=== PATIENT | male | born 1980 ===

== ENCOUNTER 2017-01-28 20:59 | Emergency (ER) | payer OTHER ==
[2017-01-28 21:51] VITALS: RESP 18
[2017-01-28] MEDS ORDERED: Tetracaine 0.5% Ophth (OR ONLY) OU STA (22:04)
[2017-01-28] MEDS ORDERED: Fluorescein 1 mg Ophthalmic Strip OU STA (22:04)
[2017-01-28] MEDS ORDERED: Lidocaine 1% Inj (20ml) INFIL STA (22:04)
[2017-01-28] MEDS ORDERED: Lidocaine 1% Inj (20ml) ONE (22:13)
[2017-01-28] MEDS ORDERED: Tetracaine 0.5% Ophth (OR ONLY) ONE (22:14)
[2017-01-28] MEDS ORDERED: Tetanus/Diphtheria Toxoids 0.5 ml Syringe IM ONE ×2 (22:36→22:44)
[2017-01-28] MEDS ORDERED: Bacitracin 500 Units/gm Oint Foilpak UD TOP STA (22:36)
[2017-01-28] MEDS ORDERED: Ciprofloxacin 0.3% OPTH SOLN OD STA (22:36)
[2017-01-28] MEDS ORDERED: Ciprofloxacin 0.3% OPTH SOLN ONE (22:43)
[2017-01-28] MEDS ORDERED: Bacitracin 500 Units/gm Oint Foilpak UD ONE (22:43)
--- NOTE | 2017-01-28 22:48 | C.PDOC ---
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 Denies weakness, numbness, or change in vision. Time Seen by Provider: 01/28/17 21:58 Chief Complaint (Nursing): Abnormal Skin Integrity History Per: Patient History/Exam Limitations: no limitations Onset/Duration Of Symptoms: Hrs Current Symptoms Are (Timing): Still Present Location Of Injury: Right: Face (eyes), Hand, Left: Face Quality Of Symptoms: Painful Recent travel outside of the [place]: No Past Medical History Reviewed: Historical Data, Nursing Documentation, Vital Signs Vital Signs: Last Vital Signs Temp 97.9 F 01/28/17 23:14 Pulse 84 01/28/17 23:14 Resp 18 01/28/17 23:14 BP 140/76 01/28/17 23:14 Pulse Ox 99 01/28/17 23:14 - Medical History PMH: No Chronic Diseases Surgical History: No Surg Hx Family History: States: Unknown Family Hx - Social History Hx Alcohol Use: No Hx Substance Use: No - Immunization History Hx Tetanus Toxoid Vaccination: No Hx Influenza Vaccination: No Hx Pneumococcal Vaccination: No Review Of Systems ENT: Positive for: Ear Pain. Negative for: Ear Discharge Musculoskeletal: Positive for: Hand Pain Skin: Positive for: Other (Laceration) Neurological: Negative for: Weakness, Numbness Physical Exam - Physical Exam Appears: Non-toxic Skin: Normal Color, Warm, Dry Head: Atraumatic, Normacephalic Eye(s): bilateral: Other (Erythema and tearing) Oral Mucosa: Moist Extremity: Other (2 1/2cm L shaped laceration to medial aspect of right hand) Pulses: Left Radial: Normal, Right Radial: Normal Neurological/Psych: Oriented x3, Normal Speech, Normal Cognition ED Course And Treatment O2 Sat by Pulse Oximetry: 97 (Room air) Pulse Ox Interpretation: Normal Progress Note: Bacitracin, Ciprofloxcin eye drops, Keflex po and Tetanus vaccination administered. Laceration repair performed; patient will be discharged home with Rx and instructed to follow up with netbackup administrator. Eye Treatment - Treatment Performed Eye Treatment: Other: (Fluorescein and tetracaine applied to bilateral eye with pointed uptake at 3 o'clock area to left eye) Foreign Body Removal With: Cotton Tip Swab (Attempted with no success) Laceration - Laceration Repair Right Hand Wound Length (In cm): 2cm Description Of Wound: Irregular (L shaped), Contused Tissue Wound Cleansed With: Betadine, Sterile Saline Anesthesia: Lidocaine 1% Wound Examination: Irrigated With Saline, No FB With Wound Exploration, No Tendon Injury With Wound Exploration Wound Closure: Suture Suture Technique And Material Used: Interrupted (4), Nylon (4-0) Wound Complexity: Simple Disposition - Disposition Referrals: Tang Reyes MD [Staff Provider] - Disposition: HOME/ ROUTINE Disposition Time: 23:05 Condition: STABLE Additional Instructions: Follow up with PMD/Clinic and Cash Register Repairer within 1-2 days. Return to ED immediately if feels worse. Suture removal in 10 days. Prescriptions: Bacitracin OINT 1 applic TP TID #45 g Cephalexin [cephalexin] 500 mg PO Q6 #28 cap Instructions: Care For Your Stitches (ED), Laceration (ED), Eye Foreign Body ( ED) Forms: Fixed - [employer] (Belarusian) - Clinical Impression Clinical Impression: Corneal foreign body, Hand laceration - Scribe Statement The provider has reviewed the documentation as recorded by the Scribe Germán Leahy All medical record entries made by the Scribe were at my direction and personally dictated by me. I have reviewed the chart and agree that the record accurately reflects my personal performance of the history, physical exam, medical decision making, and the department course for this patient. I have also personally directed, reviewed, and agree with the discharge instructions and disposition.
[2017-01-28 23:15] VITALS: BP 140/76; PULSE 84; TEMP 97.9
[2017-01-28 23:24] VITALS: O2SAT 97
== END 2017-01-28 23:14 | disposition home or self-care (01) ==
LOC: C.ER 20:59
DX: S61.411A Laceration without foreign body of right hand, initial encounter (principal); T15.02XA Foreign body in cornea, left eye, initial encounter; W45.8XXA Other foreign body or object entering through skin, initial encounter; Y93.89 Activity, other specified; Y92.89 Other specified places as the place of occurrence of the external cause

== ENCOUNTER 2017-02-07 20:52 | Emergency (ER) | payer OTHER ==
[2017-02-07 20:57] VITALS: BP 116/77; PULSE 66; RESP 16; TEMP 98.1; O2SAT 99
--- NOTE | 2017-02-07 21:33 | C.PDOC ---
History Of Present Illness 36 y/o male presents to ED for left hand stitches removal. Patient was seen at ED on 01/28/17 for evaluation on laceration to left hand sustained with an unknown metal under car. Pt notes that two stitches popped he removed one and noted some skin seperation. Notes the uses his hand a lot at work. Denies any redness, discharge, active bleeding, numbness, weakness or any other complaints at this time. Time Seen by Provider: 02/07/17 21:03 Chief Complaint (Nursing): Suture/Staple Removal History Per: Patient History/Exam Limitations: no limitations Onset/Duration Of Symptoms: Days Ago Current Symptoms Are (Timing): Still Present Location Of Injury: Left: Hand Past Medical History Reviewed: Historical Data, Nursing Documentation, Vital Signs Vital Signs: Last Vital Signs Temp 98.1 F 02/07/17 20:55 Pulse 66 02/07/17 20:55 Resp 16 02/07/17 20:55 BP 116/77 02/07/17 20:55 Pulse Ox 99 02/07/17 21:40 Family History: States: No Known Family Hx - Social History Hx Alcohol Use: No Hx Substance Use: No - Immunization History Hx Tetanus Toxoid Vaccination: No Hx Influenza Vaccination: No Hx Pneumococcal Vaccination: No Review Of Systems Except As Marked, All Systems Reviewed And Found Negative. Constitutional: Negative for: Fever, Chills Genitourinary: Negative for: Dysuria, Frequency Musculoskeletal: Negative for: Shoulder Pain, Hand Pain Skin: Negative for: Rash Physical Exam - Physical Exam Appears: Non-toxic, No Acute Distress Skin: Warm, Dry, No Rash, Other (2cm healing laceration to left hand, no erythema, no discharge) Head: Atraumatic, Normacephalic Eye(s): bilateral: Normal Inspection, EOMI Nose: Normal Oral Mucosa: Moist Chest: Symmetrical Respiratory: No Accessory Muscle Use Extremity: Normal ROM, No Tenderness, Capillary Refill (<2 seconds), No Swelling Pulses: Left Radial: Normal, Right Radial: Normal Neurological/Psych: Oriented x3, Normal Speech, Normal Cognition, Normal Motor, Normal Sensation ED Course And Treatment O2 Sat by Pulse Oximetry: 99 (RA) Pulse Ox Interpretation: Normal Progress Note: Two suture intact. One open. Open one removed. One suture removed. Some skin seperation noted with dried blood in between. Steristip applied and one suture left. Instructed to return in 3 days for suture removal. Reevaluation Time: 21:25 Reassessment Condition: Improved Disposition - Disposition Disposition: HOME/ ROUTINE Disposition Time: 21:34 Condition: STABLE Additional Instructions: KEep area clean and dry. Return in 3 - 4 days for suture removal. Instructions: Stitches Removal (ED) Forms: [employer] (Occitan) - Clinical Impression Clinical Impression: Removal of suture - PA / AGENCY SALES DEVELOPMENT ASSOCIATE / Resident Statement MD/DO has reviewed & agrees with the documentation as recorded. - Scribe Statement The provider has reviewed the documentation as recorded by the Scribmoose Vega All medical record entries made by the Jamar were at my direction and personally dictated by me. I have reviewed the chart and agree that the record accurately reflects my personal performance of the history, physical exam, medical decision making, and the department course for this patient. I have also personally directed, reviewed, and agree with the discharge instructions and disposition.
== END 2017-02-07 21:45 | disposition home or self-care (01) ==
LOC: C.ER 20:52
DX: Z48.02 Encounter for removal of sutures (principal)

== ENCOUNTER 2017-03-15 18:59 | Emergency (ER) | payer OTHER ==
[2017-03-15 19:19] VITALS: BMI 26.6
[2017-03-15 19:23] VITALS: BP 124/72; PULSE 79; TEMP 98.2; O2SAT 98
--- NOTE | 2017-03-15 21:00 | C.PDOC ---
History Of Present Illness 36 year old male presents to the ED with complaints of blisters to upper and lower lips for three days. Patient denies throat pain, rash, or urinary symptoms. Time Seen by Provider: 03/15/17 19:25 Chief Complaint (Nursing): Dental Pain History Per: Patient History/Exam Limitations: no limitations Onset/Duration Of Symptoms: Days (3 days ) Current Symptoms Are (Timing): Still Present Recent travel outside of the [place]: No Past Medical History Reviewed: Historical Data, Nursing Documentation, Vital Signs Vital Signs: Last Vital Signs Temp 98.2 F 03/15/17 19:20 Pulse 79 03/15/17 19:20 Resp 20 03/15/17 21:02 BP 124/72 03/15/17 19:20 Pulse Ox 98 03/15/17 21:00 Family History: States: Unknown Family Hx - Social History Hx Alcohol Use: No Hx Substance Use: No - Immunization History Hx Tetanus Toxoid Vaccination: No Hx Influenza Vaccination: No Hx Pneumococcal Vaccination: No Review Of Systems Constitutional: Negative for: Fever, Chills ENT: Positive for: Other (blisters to lips ). Negative for: Throat Swelling Physical Exam - Physical Exam Appears: Non-toxic, No Acute Distress Skin: Warm, Dry Head: Atraumatic, Normacephalic Eye(s): bilateral: Normal Inspection, PERRL, EOMI Ear(s): Bilateral: Normal Nose: Normal, No Discharge Oral Mucosa: Moist Tongue: Normal Appearing, No Swelling Lips: Other (vesicle clusters present to lower and upper lips ) Throat: Normal, No Erythema, No Exudate Neck: Supple Neurological/Psych: Oriented x3 ED Course And Treatment O2 Sat by Pulse Oximetry: 98 (RA) Progress Note: Patient was given Zovirax. Disposition - Disposition Referrals: Clinic,Med Surg [Primary Care Provider] - Disposition: HOME/ ROUTINE Disposition Time: 20:56 Condition: STABLE Additional Instructions: Follow up with your PMD/clinic within 1-2 days. Return to Ed if feel worse. Prescriptions: Acyclovir 400 mg PO 5XD #50 tablet Acyclovir 5% [Zovirax] 1 appl TP 5XD #1 tube Instructions: Oral Herpes Simplex Virus Infections (ED) Forms: [employer] (Serbian) - Clinical Impression Clinical Impression: Herpes labialis - PA / COLOR MAKER / Resident Statement MD/DO has reviewed & agrees with the documentation as recorded. - Scribe Statement The provider has reviewed the documentation as recorded by the Scribe Patrica Moser All medical record entries made by the Morenaibmoose were at my direction and personally dictated by me. I have reviewed the chart and agree that the record accurately reflects my personal performance of the history, physical exam, medical decision making, and the department course for this patient. I have also personally directed, reviewed, and agree with the discharge instructions and disposition.
[2017-03-15 21:03] VITALS: RESP 20
== END 2017-03-15 21:02 | disposition home or self-care (01) ==
LOC: SUPCPDRO 18:59 → C.ER 18:59
DX: B00.1 Herpesviral vesicular dermatitis (principal)

== ENCOUNTER 2017-05-01 10:26 | Emergency (ER) | payer OTHER ==
[2017-05-01 10:27] VITALS: BMI 26.6
[2017-05-01 10:32] VITALS: BP 120/82; PULSE 102; RESP 18; TEMP 98.1; O2SAT 99
[2017-05-01] MEDS ORDERED: Lidocaine 2% Inj (20ml) ONE (10:48)
--- NOTE | 2017-05-01 11:12 | C.PDOC ---
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 TRIP AND FALL CO CHIN LAC. DENIES OTHER ASSOC SX EXAM NAD HEENT NO INTRAORAL TRAUMA; AROM MANIBLE WO DIFF SKIN +L-SHAPED CHIN LAC W MIN ACTIVE BLEED, NO FB NEURO INTACT Time Seen by Provider: 05/01/17 11:09 Chief Complaint (Nursing): Abnormal Skin Integrity History Per: Patient History/Exam Limitations: no limitations Current Symptoms Are (Timing): Still Present Past Medical History Reviewed: Historical Data, Nursing Documentation, Vital Signs Vital Signs: Last Vital Signs Temp 98.1 F 05/01/17 10:32 Pulse 102 H 05/01/17 10:32 Resp 18 05/01/17 10:32 BP 120/82 05/01/17 10:32 Pulse Ox 99 05/01/17 18:00 Family History: States: Unknown Family Hx - Social History Hx Alcohol Use: No Hx Substance Use: No - Immunization History Hx Tetanus Toxoid Vaccination: Yes Hx Influenza Vaccination: No Hx Pneumococcal Vaccination: No Review Of Systems Constitutional: Negative for: Weakness Cardiovascular: Negative for: Chest Pain Respiratory: Negative for: Shortness of Breath Gastrointestinal: Negative for: Nausea, Vomiting Musculoskeletal: Positive for: Other (CHIN INJURY). Negative for: Neck Pain Neurological: Negative for: Weakness, Numbness Physical Exam - Physical Exam Appears: Non-toxic, No Acute Distress Skin: Warm, Dry, Other ( +L-SHAPED CHIN LAC W MIN ACTIVE BLEED, NO FB) Head: Other (NO INTRA ORAL TRAUMA; AROM MANDIBLE WO DIFF) Nose: Normal Oral Mucosa: Moist Lips: Normal Appearing Neck: Normal ROM Cardiovascular: Rhythm Regular, No Murmur Respiratory: Normal Breath Sounds, No Accessory Muscle Use Extremity: Normal ROM Neurological/Psych: Oriented x3, Normal Speech (NO FOCAL DEFICIT) ED Course And Treatment O2 Sat by Pulse Oximetry: 99 Laceration - Laceration Repair 1 Wound Length (In cm): 2 Description Of Wound: Clean, Irregular Wound Cleansed With: Betadine Anesthesia: Lidocaine 2% Wound Examination: Irrigated With Saline, No FB With Wound Exploration Wound Closure: Suture Suture Technique And Material Used: Prolene (3.0) Wound Complexity: Simple Disposition Counseled Patient/Family Regarding: Diagnosis, Need For Followup - Disposition Referrals: Clinic,Med Surg [Primary Care Provider] - Disposition: HOME/ ROUTINE Disposition Time: 11:11 Condition: IMPROVED Additional Instructions: RETURN 5-7 DAYS FOR SUTURE REMOVAL ALEVE AND/OR TYLENOL DIRECTED FOR PAIN Instructions: Care For Your Stitches (ED) Forms: [employer] (Arabic) - Clinical Impression Clinical Impression: Chin laceration
== END 2017-05-01 11:33 | disposition home or self-care (01) ==
LOC: SUPCPDRO 10:26 → C.ER 10:26
DX: S01.81XA Laceration without foreign body of other part of head, initial encounter (principal); W01.0XXA Fall on same level from slipping, tripping and stumbling without subsequent striking against object, initial encounter

== ENCOUNTER 2017-05-09 14:24 | Emergency (ER) | payer OTHER ==
[2017-05-09 14:24] VITALS: BMI 26.6
[2017-05-09 15:10] VITALS: BP 115/83; PULSE 91; RESP 18; TEMP 98.6; O2SAT 97
--- NOTE | 2017-05-09 15:23 | C.PDOC ---
History Of Present Illness 37 year old male presents to the ED for suture removal. Patient had 5 stitches placed to his chin on 05/01/17. Otherwise, Patient denies nay fever, nausea, pain, discharge, recent trauma, injuries or falls. Time Seen by Provider: 05/09/17 15:11 Chief Complaint (Nursing): Suture/Staple Removal History Per: Patient History/Exam Limitations: no limitations Onset/Duration Of Symptoms: Days Ago Current Symptoms Are (Timing): Gone Location Of Injury: Anterior: Face (Inferior chin) Recent travel outside of the [place]: No Additional History Per: Patient Past Medical History Reviewed: Historical Data, Nursing Documentation, Vital Signs Vital Signs: Last Vital Signs Temp 98.6 F 05/09/17 15:08 Pulse 91 H 05/09/17 15:08 Resp 18 05/09/17 15:08 BP 115/83 05/09/17 15:08 Pulse Ox 97 05/09/17 15:23 - Medical History PMH: No Chronic Diseases Surgical History: No Surg Hx Family History: States: Unknown Family Hx - Social History Hx Alcohol Use: No Hx Substance Use: No - Immunization History Hx Tetanus Toxoid Vaccination: Yes Hx Influenza Vaccination: No Hx Pneumococcal Vaccination: No Review Of Systems Constitutional: Negative for: Fever, Chills Cardiovascular: Negative for: Chest Pain Respiratory: Negative for: Shortness of Breath Gastrointestinal: Negative for: Nausea, Vomiting, Abdominal Pain Musculoskeletal: Negative for: Neck Pain Skin: Positive for: Other (inferior chin sutures) Neurological: Negative for: Weakness, Numbness, Headache Physical Exam - Physical Exam Appears: Non-toxic, No Acute Distress Skin: No Rash, Other (5 sutures inferior chin intact and clean, small scab non tender) Head: Normacephalic Eye(s): bilateral: PERRL Nose: No Discharge, No Deformity Oral Mucosa: Moist, No Drooling Throat: Normal, No Erythema, No Exudate Neck: Normal ROM, Supple Neurological/Psych: Oriented x3, Normal Speech, Normal Cognition Gait: Steady ED Course And Treatment O2 Sat by Pulse Oximetry: 97 (On RA) Pulse Ox Interpretation: Normal Medical Decision Making Medical Decision Making: Patient has 5 sutures removed from his inferior chin and tolerated the procedure well. Disposition Counseled Patient/Family Regarding: Diagnosis, Need For Followup - Disposition Referrals: [facility] [Outside] Disposition: HOME/ ROUTINE Disposition Time: 15:25 Condition: STABLE Additional Instructions: FOLLOW UP WITH YOUR DOCTOR IN 1-2 DAYS RETURN TO ER IF YOU HAVE ANY CONCERNING SYMPTOMS Instructions: Stitches Removal (ED) Forms: [employer] (Slovak) Print Language: URUGUAYAN - Clinical Impression Clinical Impression: Visit for suture removal - Scribe Statement The provider has reviewed the documentation as recorded by the Scribe Nehemias Meraz All medical record entries made by the Scribe were at my direction and personally dictated by me. I have reviewed the chart and agree that the record accurately reflects my personal performance of the history, physical exam, medical decision making, and the department course for this patient. I have also personally directed, reviewed, and agree with the discharge instructions and disposition. Suture Removal/Wound Check - Time Time: 15:35 - Historian Historian: Patient - Chief Complaints Chief complaint: Suture removal - Treated at Procedure:: Laceration repair - Symptoms since last ED visit Symptoms since last ED visit:: None - Location Right/Left:: chin (Inferior) - Radiation Radiation: None - Severity of pain Severity Current: None
== END 2017-05-09 15:34 | disposition home or self-care (01) ==
LOC: C.ER 14:24
DX: Z48.02 Encounter for removal of sutures (principal)

== ENCOUNTER 2017-06-24 23:53 | Emergency (ER) | payer OTHER ==
[2017-06-24 23:54] VITALS: BMI 26.6
[2017-06-25 00:02] VITALS: BP 134/78; PULSE 90; RESP 18; TEMP 98.7; O2SAT 96
--- NOTE | 2017-06-25 00:24 | C.PDOC ---
Time Seen by Provider: 06/25/17 00:15 Chief Complaint (Nursing): Wound Check Past Medical History - Medical History PMH: Denies: Chronic Kidney Disease Family History: States: Unknown Family Hx - Social History Hx Alcohol Use: Yes Hx Substance Use: No - Immunization History Hx Tetanus Toxoid Vaccination: Yes Hx Influenza Vaccination: No Hx Pneumococcal Vaccination: No Vital Signs: Last Vital Signs Temp 98.7 F 06/24/17 23:58 Pulse 90 06/24/17 23:58 Resp 18 06/24/17 23:58 BP 134/78 06/24/17 23:58 Pulse Ox 96 06/25/17 00:24 ED Course And Treatment O2 Sat by Pulse Oximetry: 96 Disposition - Disposition Disposition Time: 00:23 - Disposition Disposition: HOME/ ROUTINE Condition: STABLE Additional Instructions: Follow up with your PMD within 1-2 days. return to ED if feel worse. Instructions: Stitches Removal (ED) Forms: [employer] (Danish) Print Language: DUTCH - Clinical Impression Clinical Impression: Removal of suture
--- NOTE | 2017-06-25 03:49 | C.PDOC ---
History Of Present Illness 37 year old male presents to the ER for suture removal. Patient reports he had stitches placed on his left forearm 10 days ago and notes he was able to remove 2 of them himself. Denies fever or pain. Time Seen by Provider: 06/25/17 00:15 Chief Complaint (Nursing): Wound Check History Per: Patient History/Exam Limitations: no limitations Onset/Duration Of Symptoms: Days Ago, Laceration Current Symptoms Are (Timing): Gone Location Of Injury: Left: Arm Recent travel outside of the [place]: No Past Medical History Reviewed: Historical Data, Nursing Documentation, Vital Signs Vital Signs: Last Vital Signs Temp 98.7 F 06/24/17 23:58 Pulse 90 06/24/17 23:58 Resp 18 06/24/17 23:58 BP 134/78 06/24/17 23:58 Pulse Ox 96 06/25/17 04:24 Family History: States: Unknown Family Hx - Social History Hx Alcohol Use: Yes Hx Substance Use: No - Immunization History Hx Tetanus Toxoid Vaccination: Yes Hx Influenza Vaccination: No Hx Pneumococcal Vaccination: No Review Of Systems Constitutional: Negative for: Fever Skin: Positive for: Other (Sutures) Physical Exam - Physical Exam Appears: Non-toxic, No Acute Distress Skin: Warm, Dry, Other (4 sutures to left forearm, no signs of infection.) Head: Atraumatic, Normacephalic Neurological/Psych: Oriented x3, Normal Speech ED Course And Treatment O2 Sat by Pulse Oximetry: 96 (Room air) Pulse Ox Interpretation: Normal Progress Note: 4 sutures removed without difficulty. Patient instructed to follow up with PMD. Disposition - Disposition Disposition: HOME/ ROUTINE Disposition Time: 00:24 Condition: STABLE Additional Instructions: Follow up with your PMD within 1-2 days. return to ED if feel worse. Instructions: Stitches Removal (ED) Forms: [employer] (Cuban) Print Language: MARTINIQUAIS - Clinical Impression Clinical Impression: Removal of suture - PA / MANAGER SAFE / Resident Statement MD/DO has reviewed & agrees with the documentation as recorded. - Scribe Statement The provider has reviewed the documentation as recorded by the Scribe Germán Leahy All medical record entries made by the Scribe were at my direction and personally dictated by me. I have reviewed the chart and agree that the record accurately reflects my personal performance of the history, physical exam, medical decision making, and the department course for this patient. I have also personally directed, reviewed, and agree with the discharge instructions and disposition.
== END 2017-06-25 00:28 | disposition home or self-care (01) ==
LOC: C.ER 23:53
DX: Z48.02 Encounter for removal of sutures (principal)